=== PATIENT | female | born 1995 | race Caucasian/White ===

== ENCOUNTER 2023-03-01 20:10 | Emergency (ER) | payer MEDICAID ==
[~2023-03-01] VITALS: Ht 167.6 cm; Wt 101.6 kg
[~2023-03-01 20:10] MED LIST: BENZ200C53 PO; NO HOME MEDS; TRIA10.8 NAS
[2023-03-01 20:12] VITALS: BP 137/75; PULSE 98; RESP 16; TEMP 97.7; O2SAT 99
[2023-03-01] MEDS ORDERED: LORA10TA7 PO (21:16)
[2023-03-01] MEDS ORDERED: COROS RIGHTEYE (21:16)
== END 2023-03-01 21:42 | disposition home or self-care (01) ==
LOC: ER 20:10
DX: H10.9 Unspecified conjunctivitis (principal); Z79.899 Other long term (current) drug therapy
CPT/HCPCS: 99283

== ENCOUNTER 2025-05-08 22:53 | Emergency (ER) | payer MEDICAID, OTHER ==
[~2025-05-08] VITALS: Ht 165.1 cm; Wt 90.1 kg
[~2025-05-08 22:53] MED LIST changes: +COROS RIGHTEYE; +LORA10TA7 PO
[2025-05-08 22:56] VITALS: BP 127/73; PULSE 62; RESP 16; TEMP 97.9; O2SAT 98
== END 2025-05-09 02:07 | disposition left against medical advice (07) ==
LOC: ER 22:57
DX: K08.89 Other specified disorders of teeth and supporting structures (principal)
CPT/HCPCS: 99281